=== PATIENT | female | born 1945 | race Hispanic/Latino ===

== ENCOUNTER → 2018-07-10 | Outpatient (CLI) | payer MEDICARE ==
[~2018-07-10] MED LIST: AEC81 PO; CLOP75TA32 PO; ERGO500014 PO; PANT40TA25 PO; PRAV40TA3 PO
== END | disposition home or self-care (01) ==
LOC: SHCH 15:09
PROVIDERS: ATTEND Internal Medicine Cardiovascular Disease
DX: I65.23 Occlusion and stenosis of bilateral carotid arteries (principal)
CPT/HCPCS: 93880

== ENCOUNTER → 2019-09-12 | Outpatient (CLI) | payer MEDICARE | END | disposition home or self-care (01) | LOC: SHCH 08:56 | PROVIDERS: ATTEND Internal Medicine Cardiovascular Disease | DX: I25.10 Atherosclerotic heart disease of native coronary artery without angina pectoris (principal); I10 Essential (primary) hypertension | CPT/HCPCS: 93306 ==

== ENCOUNTER → 2020-11-21 | Outpatient (CLI) | payer MEDICARE ==
[~2020-11-21] MED LIST changes: -PANT40TA25 PO; +PANT40TA55 PO
== END | disposition home or self-care (01) ==
LOC: SHCH 07:45
PROVIDERS: ATTEND Internal Medicine Cardiovascular Disease
DX: R55 Syncope and collapse (principal); I10 Essential (primary) hypertension; R07.9 Chest pain, unspecified
CPT/HCPCS: 93306; 93356

== ENCOUNTER → 2020-11-26 | Outpatient (CLI) | payer MEDICARE ==
[~2020-11-26] VITALS: Ht 152.4 cm; Wt 86.2 kg
[~2020-11-26] MED LIST changes: +REGADENOSON 0.4 MG/5 ML PF SYG IVP SCH
== END | disposition home or self-care (01) ==
LOC: SHCH 08:26
PROVIDERS: ATTEND Internal Medicine Cardiovascular Disease
DX: I10 Essential (primary) hypertension (principal); R07.9 Chest pain, unspecified
CPT/HCPCS: 78452; 93017; 96374; A9500 ×2; J2785

== ENCOUNTER → 2022-08-25 | Outpatient (CLI) | payer MEDICARE ==
[~2022-08-25] MED LIST changes: -REGADENOSON 0.4 MG/5 ML PF SYG IVP SCH
[2022-08-25 13:56] LABS: BASOPHILS % (AUTO) 0.7 % (0.0-5.0); EOSINOPHILS % (AUTO) 2.1 % (0.0-8.0); HEMATOCRIT 40.4 % (36-48); MEAN CORPUSCULAR HEMOGLOBIN 31.6 pg (27.0-33.0); MEAN CORPUSCULAR HGB CONC 33.9 g/dL (32.0-36.0); MEAN CORPUSCULAR VOLUME 93.1 fL (79-99); MONOCYTES % (AUTO) 5.8 % (3.0-13.0); NEUTROPHILS % (AUTO) 58.1 % (40.0-77.0); PLATELET COUNT (AUTO) 176 K/uL (130-400); RED BLOOD CELL COUNT(AUTO) 4.34 MIL/uL (4.00-5.50); RED CELL DISTRIBUTION WIDTH 11.9 % (11.0-15.5); WHITE BLOOD COUNT (AUTO) 5.7 K/uL (4.8-10.8)
[2022-08-25 14:31] LABS: CREATININE 0.7 mg/dL (0.5-1.5); MAGNESIUM 1.8 mg/dL (1.80-2.40); POTASSIUM 4.6 mmol/L (3.5-5.1); T4 (THYROXINE) 9.1 ug/dL (4.7-13.3); THYROID STIMULATING HORMONE 1.23 uIU/mL (0.36-3.74)
== END | disposition home or self-care (01) ==
LOC: LAB 11:32
PROVIDERS: ATTEND Physician Assistant
DX: E78.5 Hyperlipidemia, unspecified (principal); I51.7 Cardiomegaly; Z95.5 Presence of coronary angioplasty implant and graft; Z79.82 Long term (current) use of aspirin; Z79.899 Other long term (current) drug therapy
CPT/HCPCS: 36415; 80048; 80061; 83036; 83735; 83880; 84436; 84443; 84479; 85025

== ENCOUNTER 2022-11-06 23:19 | Emergency (ER) | payer MEDICARE ==
[~2022-11-06] VITALS: Ht 152.4 cm; Wt 84.4 kg
[2022-11-07 00:11] LABS: BASOPHILS % (AUTO) 0.4 % (0.0-5.0); HEMATOCRIT 39.3 % (36-48); MEAN CORPUSCULAR HEMOGLOBIN 31.4 pg (27.0-33.0); MEAN CORPUSCULAR HGB CONC 34.6 g/dL (32.0-36.0); MEAN CORPUSCULAR VOLUME 90.8 fL (79-99); MONOCYTES % (AUTO) 5.2 % (3.0-13.0); NEUTROPHILS % (AUTO) 82.9 % (40.0-77.0); PLATELET COUNT (AUTO) 151 K/uL (130-400); RED BLOOD CELL COUNT(AUTO) 4.33 MIL/uL (4.00-5.50); RED CELL DISTRIBUTION WIDTH 11.9 % (11.0-15.5); WHITE BLOOD COUNT (AUTO) 10.5 K/uL (4.8-10.8)
[2022-11-07 00:13] LABS: APPEARANCE,URINE CLEAR (CLEAR); BILIRUBIN,URINE NEGATIVE (NEGATIVE); COLOR,URINE YELLOW (YELLOW); GLUCOSE, URINE (UA) NEGATIVE (NEGATIVE); KETONES,URINE 5 mg/dL (NEGATIVE); LEUKOCYTE ESTERASE ,URINE 25 Leu/uL (NEGATIVE); NITRATE,URINE NEGATIVE (NEGATIVE); OCCULT BLOOD,URINE SMALL (NEGATIVE); PH,URINE 5.5 (5.0-8.0); PROTEIN,URINE NEGATIVE (NEGATIVE); UROBILINOGEN,URINE 0.2 mg/dL (0.2-1.0)
[2022-11-07 00:19] LABS: CREATININE 0.6 mg/dL (0.5-1.5); POTASSIUM 3.5 mmol/L (3.5-5.1)
[2022-11-07 00:23] LABS: MUCUS,URINE RARE LPF (None Seen); SQUAMOUS EPITHELIAL CELL,UR RARE /HPF (0-2)
[2022-11-07 00:27] LABS: ALBUMIN 3.9 g/dL (3.5-5.0); TOTAL PROTEIN, SERUM 7.2 g/dL (6.0-8.3)
[2022-11-07] MEDS: FAMOTIDINE 20MG VIAL IV ONE (00:35)
[2022-11-07] MEDS: 0.9%NACL 1000ML 1,000 ML IV ONE (00:35)
[2022-11-07] MEDS: METOCLOPRAMIDE 10 MG/2 ML VIAL IVP ONE (00:36)
[2022-11-07] MEDS: ACETAMINOPHEN 500 MG TABLET PO ONE (00:38)
[2022-11-07] MEDS ORDERED: CEPH500B PO (01:59)
[2022-11-07] MEDS ORDERED: PHEN-847 PO (01:59)
[2022-11-07] MEDS ORDERED: POLY17PO4 PO (01:59)
[2022-11-07] MEDS: PHENAZOPYRIDINE HCL 200 MG TABLET PO ONE (03:02)
[2022-11-07] MEDS: CEFTRIAXONE 2GM VIAL IVPB ONE (03:03)
[2022-11-07 03:21] VITALS: BP 136/73
== END 2022-11-07 03:22 | disposition home or self-care (01) ==
LOC: EDH 23:19
DX: N39.0 Urinary tract infection, site not specified (principal); K59.00 Constipation, unspecified; E78.00 Pure hypercholesterolemia, unspecified; Z79.82 Long term (current) use of aspirin; Z79.899 Other long term (current) drug therapy; Z88.5 Allergy status to narcotic agent
CPT/HCPCS: 99285; 84484; 80053; 83690; 85025; 81001; 36415; 74176; 96365; 96361; 71045; 96375; 93005; J3490; J7030; J0696; J2765

== ENCOUNTER → 2022-12-09 | Emergency (ER) | payer MEDICARE ==
[~2022-12-09] VITALS: Ht 157.5 cm; Wt 83.9 kg
[~2022-12-09] MED LIST changes: +CEPH500B PO; +HYDROXYZINE 25 MG TABLET PO ONE; +PHEN-847 PO; +POLY17PO4 PO
[2022-12-09 15:15] LABS: BASOPHILS % (AUTO) 0.3 % (0.0-5.0); EOSINOPHILS % (AUTO) 0.5 % (0.0-8.0); HEMATOCRIT 40.8 % (36-48); LYMPHOCYTES % (AUTO) 21.6 % (21.0-51.0); MEAN CORPUSCULAR HEMOGLOBIN 31.4 pg (27.0-33.0); MEAN CORPUSCULAR HGB CONC 33.6 g/dL (32.0-36.0); MEAN CORPUSCULAR VOLUME 93.4 fL (79-99); MONOCYTES % (AUTO) 4.9 % (3.0-13.0); NEUTROPHILS % (AUTO) 72.4 % (40.0-77.0); PLATELET COUNT (AUTO) 167 K/uL (130-400); RED BLOOD CELL COUNT(AUTO) 4.37 MIL/uL (4.00-5.50); RED CELL DISTRIBUTION WIDTH 11.9 % (11.0-15.5); WHITE BLOOD COUNT (AUTO) 6.2 K/uL (4.8-10.8)
[2022-12-09 16:02] LABS: CREATININE 0.8 mg/dL (0.5-1.5); POTASSIUM 3.6 mmol/L (3.5-5.1)
[2022-12-09 16:11] LABS: ALBUMIN 3.7 g/dL (3.5-5.0)
[2022-12-09 16:29] LABS: MAGNESIUM 2.1 mg/dL (1.80-2.40)
[2022-12-09 16:30] LABS: THYROID STIMULATING HORMONE 1.87 uIU/mL (0.36-3.74)
[2022-12-09 18:12] VITALS: BP 165/74
== END ==
LOC: EDH 14:22
DX: R53.1 Weakness (principal); E78.00 Pure hypercholesterolemia, unspecified; Z79.82 Long term (current) use of aspirin; Z79.899 Other long term (current) drug therapy; Z88.5 Allergy status to narcotic agent; W18.39XA Other fall on same level, initial encounter; Y93.89 Activity, other specified; Y92.89 Other specified places as the place of occurrence of the external cause; Y99.8 Other external cause status
CPT/HCPCS: 36415; 71045; 80053; 83735; 84443; 84484; 85025; 93005

== ENCOUNTER → 2022-12-13 | Outpatient (CLI) | payer MEDICARE ==
[~2022-12-13] MED LIST changes: -HYDROXYZINE 25 MG TABLET PO ONE
[2022-12-13 12:45] LABS: CHOLESTEROL 208 mg/dL (<200); HDL CHOLESTEROL 65 mg/dL (35-85); LDL DIRECT 118 mg/dL (0-99); TRIGLYCERIDES 144 mg/dL (30-200)
== END | disposition home or self-care (01) ==
LOC: LAB 08:17
PROVIDERS: ATTEND Physician Assistant
DX: E78.5 Hyperlipidemia, unspecified (principal)
CPT/HCPCS: 36415; 80061

== ENCOUNTER → 2022-12-25 | Outpatient (CLI) | payer MEDICARE | END | disposition home or self-care (01) | LOC: CANPRECLI → SHCH 09:56 | PROVIDERS: ATTEND Internal Medicine Cardiovascular Disease | DX: R09.89 Other specified symptoms and signs involving the circulatory and respiratory systems (principal) | CPT/HCPCS: 93880 ==

== ENCOUNTER 2023-05-29 10:02 | Emergency (ER) | payer MEDICARE ==
[~2023-05-29] VITALS: Ht 165.1 cm; Wt 76.2 kg
[2023-05-29 10:48] VITALS: BP 166/75; PULSE 69; RESP 16
[2023-05-29 11:30] LABS: RAPID GROUP A STREP negative (NEGATIVE)
[2023-05-29 11:40] LABS: INFLUENZA TYPE A Negative For Type A (NEGATIVE); INFLUENZA TYPE B Negative For Type B (NEGATIVE)
[2023-05-29 11:52] LABS: SARS-CoV-2, RNA, NAAT POSITIVE SARS CoV-2 (NEGATIVE)
[2023-05-29] MEDS ORDERED: BENZ-39 PO (12:37)
== END 2023-05-29 15:43 | disposition home or self-care (01) ==
LOC: EDH 10:02
DX: U07.1 COVID-19 (principal); R53.1 Weakness; M79.10 Myalgia, unspecified site; R05.9 Cough, unspecified; E78.00 Pure hypercholesterolemia, unspecified; Z79.82 Long term (current) use of aspirin; Z79.899 Other long term (current) drug therapy; Z88.5 Allergy status to narcotic agent
CPT/HCPCS: 71045; 87635; 87804; 87880

== ENCOUNTER 2024-02-15 22:21 | Emergency (ER) | payer OTHER, MEDICARE ==
[~2024-02-15] VITALS: Ht 162.6 cm; Wt 81.6 kg
[~2024-02-15 22:21] MED LIST changes: +BENZ-39 PO
[2024-02-16] MEDS ORDERED: hydrALAZine 20MG/ML VIAL IV ONE (00:30)
[2024-02-16 01:18] VITALS: BP 146/54; PULSE 59; RESP 18; TEMP 97.9; O2SAT 100
== END 2024-02-16 01:49 | disposition home or self-care (01) ==
LOC: EDH 22:21
DX: S16.1XXA Strain of muscle, fascia and tendon at neck level, initial encounter (principal); M25.512 Pain in left shoulder; E78.00 Pure hypercholesterolemia, unspecified; Z88.5 Allergy status to narcotic agent; Z79.899 Other long term (current) drug therapy; Z79.2 Long term (current) use of antibiotics; Z79.82 Long term (current) use of aspirin; Z90.710 Acquired absence of both cervix and uterus; Z98.890 Other specified postprocedural states; Z90.89 Acquired absence of other organs; Z95.5 Presence of coronary angioplasty implant and graft; V63.5XXA Driver of heavy transport vehicle injured in collision with car, pick-up truck or van in traffic accident, initial encounter; Y93.I9 Activity, other involving external motion; Y92.488 Other paved roadways as the place of occurrence of the external cause; Y99.8 Other external cause status
CPT/HCPCS: 70450; 71045; 72125; 73030